=== PATIENT | male | born 1970 | race African-American/Black ===

== ENCOUNTER 2016-08-01 19:41 | Inpatient (IN) | payer OTHER ==
[2016-08-01 21:18] VITALS: BMI 29.8
--- NOTE | 2016-08-01 21:56 | HP ---
CIWA Score - CIWA Score Nausea/Vomitin-Mild Nausea/No Vomiting Muscle Tremors: 4-Moderate,w/Arms Extend Anxiety: 4-Mod. Anxious/Guarded Agitation: 2 Paroxysmal Sweats: 1-Minimal Palms Moist Orientation: 1-Uncertain about Date Tacttile Disturbances: 0-None Auditory Disturbances: 0-None Visual Disturbances: 0-None Headache: 1-Very Mild CIWA-Ar Total Score: 14 Admission ROS BHS - HPI Chief Complaint: withdrawal sx Allergies/Adverse Reactions: Allergies Allergy/AdvReac Type Severity Reaction Status Date / Time No Known Allergies Allergy Verified 08/01/16 21:21 History of Present Illness: 46 years old male with long history of alcohol nicotine dependence, chf copd and chronic bronchitis, denies mental illness, longest sobriety 10 months is admitted to detox Exam Limitations: No Limitations - Ebola screening Have you traveled outside of the country in the last 21 days: No (N) Have you had contact with anyone from an Ebola affected area: No Have you been sick,other than usual withdrawal symptoms: No Do you have a fever: No - Review of Systems Constitutional: Chills, Changes in sleep, Weight Stable EENT: reports: No Symptoms Reported Respiratory: reports: Cough, SOB with Exertion Cardiac: reports: No Symptoms Reported GI: reports: Nausea, Poor Fluid Intake, Abdominal cramping : reports: No Symptoms Reported Musculoskeletal: reports: No Symptoms Reported Integumentary: reports: No Symptoms Reported Neuro: reports: Tremors Endocrine: reports: No Symptoms Reported Hematology: reports: No Symptoms Reported Psychiatric: reports: Judgement Intact, Mood/Affect Appropiate Other Systems: Reviewed and Negative Patient History - Patient Medical History Hx Anemia: No Hx Asthma: No Hx Chronic Obstructive Pulmonary Disease (COPD): Yes Hx Cancer: No Hx Cardiac Disorders: No Hx Congestive Heart Failure: Yes Hx Hypertension: No Hx Hypercholesterolemia: No Hx Pacemaker: Yes (2011) HX Cerebrovascular Accident: Yes (left side 2012) Hx Seizures: No Hx Dementia: No Hx Diabetes: No Hx Gastrointestinal Disorders: No Hx Liver Disease: No Hx Genitourinary Disorders: No Hx Sexually Transmitted Disorders: No Hx Renal Disease (ESRD): No Hx Thyroid Disease: No Hx Human Immunodeficiency Virus (HIV): No Hx Hepatitis C: No Hx Depression: No Hx Suicide Attempt: No Hx Bipolar Disorder: No Hx Schizophrenia: No - Patient Surgical History Past Surgical History: Yes Hx Neurologic Surgery: No Hx Cataract Extraction: No Hx Cardiac Surgery: Yes ([employer]ACE [employer] 2011) Hx Lung Surgery: No Hx Breast Surgery: No Hx Breast Biopsy: No Hx Abdominal Surgery: No Hx Appendectomy: Yes (6 years old) Hx Cholecystectomy: No Hx Genitourinary Surgery: No Hx Orthopedic Surgery: No Anesthesia Reaction: No - PPD History Previous Implant?: Yes Documented Results: Negative w/o proof Implanted On Prior [facility] Admission?: No PPD to be Administered?: Yes - Smoking Cessation Smoking history: Current every day smoker Have you smoked in the past 12 months: Yes Aproximately how many cigarettes per day: 10 Cigars Per Day: 0 Hx Chewing Tobacco Use: No Initiated information on smoking cessation: Yes 'Breaking Loose' booklet given: 08/01/16 - Substance & Tx. History Hx Alcohol Use: Yes Hx Substance Use: Yes Substance Use Type: Alcohol, Cocaine Hx Substance Use Treatment: Yes - Substances Abused Alcohol Route: Oral Frequency: Daily Amount used: 3-4 PINTS volka Age of first use: 7 Date of Last Use: 08/01/16 Cocaine Route: Inhalation Frequency: 1-2 times per week Amount used: $20 Age of first use: 34 Date of Last Use: 07/30/16 Family Disease History - Family Disease History Family Disease History: Other: Father (no contact), Mother (no contact) Admission Physical Exam S - Vital Signs Vital Signs: Vital Signs - 24 hr 08/01/16 21:16 Temperature 96.3 F L Pulse Rate 84 Respiratory 20 Rate Blood Pressure 113/59 - Physical General Appearance: Yes: Appropriately Dressed, Mild Distress, Tremorous, Irritable, Sweating, Anxious HEENTM: Yes: Hearing grossly Normal, Normal ENT Inspection, Normocephalic, Normal Voice Respiratory: Yes: Chest Non-Tender, No Respiratory Distress, No Accessory Muscle Use, Hyperresonant, Inspiration Neck: Yes: Within Normal Limits Breast: Yes: Breasts Symetrical Cardiology: Yes: Regular Rhythm, Regular Rate, S1, S2, Other (pacemaker left upper chest wall) Abdominal: Yes: Non Tender, Soft Genitourinary: Yes: Within Normal Limits Back: Yes: Normal Inspection Musculoskeletal: Yes: full range of Motion, Gait Steady Extremities: Yes: Normal Inspection, Normal Range of Motion, Non-Tender, Tremors Neurological: Yes: Alert, Motor Strength 5/5, Normal Mood/Affect, Normal Response Integumentary: Yes: Warm, Moist Lymphatic: Yes: Within Normal Limits - Diagnostic (1) Alcohol dependence with uncomplicated withdrawal Current Visit: Yes Status: Acute (2) Nicotine dependence Current Visit: Yes Status: Acute Qualifiers: Nicotine product type: cigarettes Substance use status: in withdrawal Qualified Code(s): F17.213 - Nicotine dependence, cigarettes, with withdrawal (3) CHF (congestive heart failure) Current Visit: Yes Status: Acute Qualifiers: Congestive heart failure type: unspecified congestive heart failure type Congestive heart failure chronicity: unspecified congestive heart failure chronicity Qualified Code(s): I50.9 - Heart failure, unspecified Comment: laxis (4) History of atrial fibrillation Current Visit: Yes Status: Resolved Comment: digoxin serum level pending (5) COPD (chronic obstructive pulmonary disease) Current Visit: Yes Status: Acute Qualifiers: COPD type: emphysema Emphysema type: other Qualified Code(s): J43.8 - Other emphysema Comment: ventolin (6) Chronic bronchitis Current Visit: Yes Status: Acute Qualifiers: Chronic bronchitis type: simple Qualified Code(s): J41.0 - Simple chronic bronchitis Comment: symbicort (7) Pacemaker Current Visit: Yes Status: Resolved Comment: 2011 battery refilled 2015 (8) Hypertension Current Visit: Yes Status: Acute Qualifiers: Hypertension type: essential hypertension Qualified Code(s): I10 - Essential (primary) hypertension Comment: lisinopril (9) Hypercholesterolemia Current Visit: Yes Status: Acute Comment: lipitor Cleared for Admission S - Detox or Rehab [facility] Level of Care: Medically Managed Detox Regimen/Protocol: Librium [facility] Breath Alcohol Content Breath Alcohol Content: 0 Urine Drug Screen - Results Drug Screen Negative: No Urine Drug Screen Results: JIAN-Cocaine, BZO-Benzodiazepines
[2016-08-01] MEDS ORDERED: NICOTINE POLACRILEX 2 MG GUM BC PRN (22:02)
[2016-08-01] MEDS ORDERED: MAGNESIUM CITRATE 300 ML BOTTLE PO PRN (22:02)
[2016-08-01] MEDS ORDERED: MAGNESIUM HYDROX 2400MG/30ML ORAL SUSPENSION 30 ML CUP PO PRN (22:02)
[2016-08-01] MEDS ORDERED: P-EPHED 60MG/TRIPROLIDI 2.5MG TABLET PO PRN (22:02)
[2016-08-01] MEDS ORDERED: hydrOXYzine PAMOATE 50 MG CAPSULE (FP) PO PRN (22:02)
[2016-08-01] MEDS ORDERED: MAG HYDROX/AL HYDROX/SIMETH 30 ML UNIT-DOSE CUP PO PRN (22:02)
[2016-08-01] MEDS ORDERED: ACETAMINOPHEN 325 MG TABLET (FP) PO PRN (22:02)
[2016-08-01] MEDS ORDERED: MENTHOL/PHENOL 1 EACH UD MM PRN (22:02)
[2016-08-01] MEDS ORDERED: chlordiazePOXIDE HCL 25 MG CAPSULE PO PRN (22:02)
[2016-08-01] MEDS ORDERED: LOPERAMIDE HCL 2 MG CAPSULE PO PRN (22:02)
[2016-08-01] MEDS ORDERED: ALBUTEROL SO4 2.5/IPRATROPIUM 0.5 INH SOL 3 ML VIAL.NEB. NEB PRN (22:12)
[2016-08-01] MEDS: chlordiazePOXIDE HCL 25 MG CAPSULE PO SCH (22:44)
[2016-08-02] MEDS: chlordiazePOXIDE HCL 25 MG CAPSULE PO SCH ×4 (05:36→22:25)
--- NOTE | 2016-08-02 07:59 | CONSULT ---
[facility] Psychiatric Consult - Data Date of interview: 08/02/16 Admission source: [facility] Identifying data: This is 46 years old male with no psychiatric hospitalization history, multiple medical issues history, intoxicated with: Alcohol, Cocainr and Nicotine Substance Abuse History: - Smoking Cessation. Smoking history: Current every day smoker. Have you smoked in the past 12 months: Yes. Aproximately how many cigarettes per day: 10. Cigars Per Day: 0. Hx Chewing Tobacco Use: No. Initiated information on smoking cessation: Yes. 'Breaking Loose' booklet given : 08/01/16. - Substance & Tx. History. Hx Alcohol Use: Yes. Hx Substance Use : Yes. Substance Use Type: Alcohol, Cocaine. Hx Substance Use Treatment: Yes. - Substances Abused. Alcohol. Route: Oral. Frequency: Daily. Amount used: 3-4 PINTS volka. Age of first use: 7. Date of Last Use: 08/01/16. Cocaine. Route: Inhalation. Frequency: 1-2 times per week. Amount used: $20. Age of first use: 34. Date of Last Use: 07/30/16 Medical History: CHF, Chronic Bronchitis history, COPD, Hypercholesterolemia, HTN, Pacemaker installment, A.Fib history Psychiatric History: Denies past psychiatric history Physical/Sexual Abuse/Trauma History: Denies Additional Comment: Observation. Detox Unit Care Protocol Mental Status Exam - Mental Status Exam Alert and Oriented to: Person Cognitive Function: Fair Patient Appearance: Well Groomed Mood: Apprehensive Affect: Mood Congruent Patient Behavior: Cooperative Speech Pattern: Appropriate Voice Loudness: Normal Thought Process: Goal Oriented Thought Disorder: Being Controlled Hallucinations: Denies Suicidal Ideation: Denies Homicidal Ideation: Denies Insight/Judgement: Fair Sleep: Difficulty falling asleep Appetite: Fair Muscle strength/Tone: Normal Gait/Station: Normal Additional Comments: Observation. Detox Unit Care Protocol Psychiatric Findings - Problem List ([place] 1, 2,3) (1) Alcohol dependence with uncomplicated withdrawal Current Visit: Yes Status: Acute (2) Nicotine dependence Current Visit: Yes Status: Acute Qualifiers: Nicotine product type: cigarettes Substance use status: in withdrawal Qualified Code(s): F17.213 - Nicotine dependence, cigarettes, with withdrawal (3) Cocaine abuse Current Visit: Yes Status: Acute (4) Drug-induced mood disorder Current Visit: Yes Status: Suspected - Initial Treatment Plan Initial Treatment Plan: Observation. Detox Unit Care Protocol
[2016-08-02 10:05] LABS: MCH 30.2 pg (25.7-33.7); MEAN CELL VOLUME 91.5 fl (80-96); MEAN PLT VOLUME 7.8 fl (7.5-11.1); PLATELET COUNT 288 K/MM3 (134-434); RDW 16.9 % (11.9-15.9); WHITE BLOOD COUNT 10.8 K/mm3 (4.0-10.0)
[2016-08-02 10:12] LABS: URINE APPEARANCE CLEAR; URINE BILIRUBIN NEGATIVE (NEGATIVE); URINE BLOOD NEGATIVE (NEGATIVE); URINE COLOR LTYELLOW; URINE GLUCOSE (UA) NEGATIVE (NEGATIVE); URINE KETONE NEGATIVE (NEGATIVE); URINE LEUK ESTERASE NEGATIVE (NEGATIVE); URINE NITRITE NEGATIVE (NEGATIVE); URINE PROTEIN NEGATIVE (NEGATIVE); URINE UROBILINOGEN 2.0 E.U/dl E.U./dl (0.2-1.0)
--- NOTE | 2016-08-02 10:20 | PN ---
S CIWA - CIWA Score Nausea/Vomitin-No Nausea/No Vomiting Muscle Tremors: 3 Anxiety: 3 Agitation: 3 Paroxysmal Sweats: 3 Orientation: 0-Oriented Tacttile Disturbances: 0-None Auditory Disturbances: 0-None Visual Disturbances: 0-None Headache: 0-None Present CIWA-Ar Total Score: 12 BHS Progress Note (SOAP) Subjective: sweats mild shakes mild headache interrupted sleep Objective: 08/02/16 10:18 Vital Signs Temperature 96.4 F L 08/02/16 09:31 Pulse Rate 84 08/02/16 09:31 Respiratory Rate 16 08/02/16 09:31 Blood Pressure 139/65 08/02/16 09:31 O2 Sat by Pulse Oximetry (%) Laboratory Tests 08/02/16 06:45 WBC 10.8 H RBC 4.47 Hgb 13.5 Hct 40.9 MCV 91.5 MCHC 33.0 RDW 16.9 H Plt Count 288 MPV 7.8 labs pending awake/alert ambulating no acute distress Assessment: 08/02/16 10:19 withdrawal sx Plan: continue detox increase fluids
--- NOTE | 2016-08-02 10:22 | PN ---
S Progress Note Note: repeated EKG done this am; same result appear as the earlier EKG done, contacted cardiology/ekg department at [facility] for a consultation of recent ekg by tennis director ext [phone], awaiting confirmation of reading. will f/u. pt appears asymptomatic denies any chest pain no sob, no diaphoresis
[2016-08-02] MEDS: ASPIRIN 81 MG CHEWABLE TABLETS PO SCH (10:36)
[2016-08-02] MEDS: SPIRONOLACTONE 25 MG TABLET (FP) PO SCH (10:36)
[2016-08-02] MEDS: LISINOPRIL 20 MG TABLET (FP) PO SCH (10:36)
[2016-08-02] MEDS: PRENATAL VITAMINS W/ FOLIC ACID TABLET (FP) PO SCH (10:36)
[2016-08-02] MEDS: FUROSEMIDE 40 MG TABLET (FP) PO SCH (10:36)
[2016-08-02] MEDS: DIGOXIN 0.125 MG TABLET (FP) PO SCH (10:36)
[2016-08-02] MEDS: NICOTINE 14 MG/24 HOURS TOPICAL PATCH TD SCH (10:39)
[2016-08-02 10:45] LABS: ALK PHOS 112 U/L (45-117); ANION GAP 12 (8-16); BILIRUBIN,TOTAL 0.7 mg/dL (0.2-1.0); CALCIUM 8.6 mg/dL (8.5-10.1); CO2 24 mmol/L (21-32); CREATININE 1.2 mg/dL (0.7-1.3); DIGOXIN LEVEL 0.5917 ng/ml (0.8-2.0); GLUCOSE,RANDOM 88 mg/dL (74-106); SGOT/AST 14 U/L (15-37); SGPT/ALT 18 U/L (12-78); TOT PROT 6.6 g/dl (6.4-8.2)
[2016-08-02 10:55] LABS: INR 1.85 (0.82-1.09); PROTHROMBIN TIME (PATIENT) 20.6 SEC (9.98-11.88)
[2016-08-02 11:20] LABS: HIV 1 & 2 AB NEGATIVE; HIV 1 AGp24 NEGATIVE
--- NOTE | 2016-08-02 11:40 | EKG ---
Test Reason : Blood Pressure : / mmHG Vent. Rate : 082 BPM Atrial Rate : 082 BPM P-R Int : 150 ms QRS Dur : 146 ms QT Int : 494 ms P-R-T Axes : 071 119 -01 degrees QTc Int : 577 ms Atrial-sensed ventricular-paced rhythm WITH FREQUENT PREMATURE VENTRICULAR COMPLEXES ABNORMAL ECG WHEN COMPARED WITH ECG OF 02-AUG-2016 07:23, NO SIGNIFICANT CHANGE WAS FOUND Confirmed by ENMA BANG, DEVON ([id number]) on 08/02/2016 11:40:19 AM Referred By: Confirmed By:DEVON NORWOOD MD
--- NOTE | 2016-08-02 11:40 | EKG ---
Test Reason : Blood Pressure : / mmHG Vent. Rate : 082 BPM Atrial Rate : 082 BPM P-R Int : 152 ms QRS Dur : 144 ms QT Int : 502 ms P-R-T Axes : 070 150 023 degrees QTc Int : 586 ms Atrial-sensed ventricular-paced rhythm WITH OCCASIONAL PREMATURE VENTRICULAR COMPLEXES ABNORMAL ECG WHEN COMPARED WITH ECG OF 01-AUG-2016 22:48, VENT. RATE HAS DECREASED BY 4 BPM Confirmed by ENMA BANG, DEVON ([id number]) on 08/02/2016 11:40:47 AM Referred By: Confirmed By:DEVON NORWOOD MD
--- NOTE | 2016-08-02 11:41 | EKG ---
Test Reason : Blood Pressure : / mmHG Vent. Rate : 086 BPM Atrial Rate : 086 BPM P-R Int : 148 ms QRS Dur : 138 ms QT Int : 474 ms P-R-T Axes : 071 137 -16 degrees QTc Int : 567 ms Atrial-sensed ventricular-paced rhythm WITH OCCASIONAL PREMATURE VENTRICULAR COMPLEXES ABNORMAL ECG NO PREVIOUS ECGS AVAILABLE Confirmed by DEVON NORWOOD MD ([id number]) on 08/02/2016 11:41:16 AM Referred By: Confirmed By:DEVON NORWOOD MD
[2016-08-02] MEDS: BUDESONIDE/FORMETEROL FUMARATE 80/4.5 mcg INHALER IH SCH ×2 (12:05→22:24)
[2016-08-02] MEDS: RIVAROXABAN 20 MG TABLET PO SCH (12:05)
[2016-08-02] MEDS: THIAMINE HCL 100 MG TABLET (FP) PO SCH (22:24)
[2016-08-02] MEDS: ATORVASTATIN CA 40 MG TABLET (FP) PO SCH (22:25)
[2016-08-03] MEDS: chlordiazePOXIDE HCL 25 MG CAPSULE PO SCH ×3 (05:16→17:10)
[2016-08-03] MEDS: PRENATAL VITAMINS W/ FOLIC ACID TABLET (FP) PO SCH (10:22)
[2016-08-03] MEDS: FUROSEMIDE 40 MG TABLET (FP) PO SCH (10:22)
[2016-08-03] MEDS: BUDESONIDE/FORMETEROL FUMARATE 80/4.5 mcg INHALER IH SCH ×2 (10:22→22:12)
[2016-08-03] MEDS: ASPIRIN 81 MG CHEWABLE TABLETS PO SCH (10:22)
[2016-08-03] MEDS: RIVAROXABAN 20 MG TABLET PO SCH (10:22)
[2016-08-03] MEDS: LISINOPRIL 20 MG TABLET (FP) PO SCH (10:22)
[2016-08-03] MEDS: SPIRONOLACTONE 25 MG TABLET (FP) PO SCH (10:22)
--- NOTE | 2016-08-03 10:41 | PN ---
S CIWA - CIWA Score Nausea/Vomitin Muscle Tremors: 3 Anxiety: 3 Agitation: 2 Paroxysmal Sweats: No Perspiration Orientation: 0-Oriented Tacttile Disturbances: 1-Very Mild Itch/Numbness Auditory Disturbances: 1-Very Mild Visual Disturbances: 1-Very Mild Sensitivity Headache: 2-Mild CIWA-Ar Total Score: 16 BHS Progress Note (SOAP) Subjective: ALERT,IRRITABLE,ANXIOUS,INTERRUPTED SLEEP,TREMOR,NO CHEST PAIN,NO SOB Objective: 08/03/16 10:39 Vital Signs Temperature 95.5 F L 08/03/16 06:00 Pulse Rate 83 08/03/16 06:00 Respiratory Rate 18 08/03/16 06:00 Blood Pressure 110/71 08/03/16 06:00 O2 Sat by Pulse Oximetry (%) 08/03/16 10:39 Laboratory Last Values WBC 10.8 K/mm3 (4.0-10.0) H 08/02/16 06:45 RBC 4.47 M/mm3 (4.00-5.60) 08/02/16 06:45 Hgb 13.5 GM/dL (11.7-16.9) 08/02/16 06:45 Hct 40.9 % (35.4-49) 08/02/16 06:45 MCV 91.5 fl (80-96) 08/02/16 06:45 MCHC 33.0 g/dl (32.0-35.9) 08/02/16 06:45 RDW 16.9 % (11.9-15.9) H 08/02/16 06:45 Plt Count 288 K/MM3 (134-434) 08/02/16 06:45 MPV 7.8 fl (7.5-11.1) 08/02/16 06:45 INR 1.85 (0.82-1.09) H 08/02/16 06:45 Sodium 141 mmol/L (136-145) 08/02/16 06:45 Potassium 4.0 mmol/L (3.5-5.1) 08/02/16 06:45 Chloride 105 mmol/L (98-107) 08/02/16 06:45 Carbon Dioxide 24 mmol/L (21-32) 08/02/16 06:45 Anion Gap 12 (8-16) 08/02/16 06:45 BUN 19 mg/dL (7-18) H 08/02/16 06:45 Creatinine 1.2 mg/dL (0.7-1.3) 08/02/16 06:45 Creat Clearance w eGFR > 60 (>60) 08/02/16 06:45 Random Glucose 88 mg/dL (74-106) 08/02/16 06:45 Calcium 8.6 mg/dL (8.5-10.1) 08/02/16 06:45 Total Bilirubin 0.7 mg/dL (0.2-1.0) 08/02/16 06:45 AST 14 U/L (15-37) L 08/02/16 06:45 ALT 18 U/L (12-78) 08/02/16 06:45 Alkaline Phosphatase 112 U/L (45-117) 08/02/16 06:45 Total Protein 6.6 g/dl (6.4-8.2) 08/02/16 06:45 Albumin 3.0 g/dl (3.4-5.0) L 08/02/16 06:45 Urine Color Ltyellow 08/02/16 07:30 Urine Appearance Clear 08/02/16 07:30 Urine pH 6.0 (5.0-8.0) 08/02/16 07:30 Ur Specific [place] 1.010 (1.001-1.035) 08/02/16 07:30 Urine Protein Negative (NEGATIVE) 08/02/16 07:30 Urine Glucose (UA) Negative (NEGATIVE) 08/02/16 07:30 Urine Ketones Negative (NEGATIVE) 08/02/16 07:30 Urine Blood Negative (NEGATIVE) 08/02/16 07:30 Urine Nitrite Negative (NEGATIVE) 08/02/16 07:30 Urine Bilirubin Negative (NEGATIVE) 08/02/16 07:30 Urine Urobilinogen 2.0 e.u/dl E.U./dl (0.2-1.0) 08/02/16 07:30 Ur Leukocyte Esterase Negative (NEGATIVE) 08/02/16 07:30 Digoxin 0.5917 ng/ml (0.8-2.0) L 08/02/16 06:45 RPR Titer Nonreactive (NONREACTIVE) 08/02/16 06:45 HIV 1&2 Antibody Screen Negative 08/02/16 06:45 HIV P24 Antigen Negative 08/02/16 06:45 Assessment: 08/03/16 10:40 WITHDRAWAL SYMPTOM Plan: CONTINUE DETOX
[2016-08-03] MEDS: NICOTINE 14 MG/24 HOURS TOPICAL PATCH TD SCH (11:00)
[2016-08-03] MEDS: DIGOXIN 0.125 MG TABLET (FP) PO SCH (12:09)
[2016-08-03] MEDS: ATORVASTATIN CA 40 MG TABLET (FP) PO SCH (22:12)
[2016-08-03] MEDS: THIAMINE HCL 100 MG TABLET (FP) PO SCH (22:12)
[2016-08-03] MEDS: diphenhydrAMINE HCL 50 MG CAPSULE PO PRN (22:12)
[2016-08-03] MEDS: chlordiazePOXIDE 5 MG CAPSULE PO SCH (22:13)
[2016-08-03] MEDS: guaiFENesin/D-METHORPHAN HB 10 ML UNIT-DOSE CUPS PO PRN (22:14)
[2016-08-04] MEDS: chlordiazePOXIDE 5 MG CAPSULE PO SCH ×3 (05:32→17:55)
[2016-08-04] MEDS: guaiFENesin/D-METHORPHAN HB 10 ML UNIT-DOSE CUPS PO PRN (05:33)
[2016-08-04] MEDS: ALBUTEROL SO4 6.7 GM HFA INHALER IH PRN ×3 (05:34→22:17)
[2016-08-04] MEDS: PRENATAL VITAMINS W/ FOLIC ACID TABLET (FP) PO SCH (10:31)
[2016-08-04] MEDS: LISINOPRIL 20 MG TABLET (FP) PO SCH (10:31)
[2016-08-04] MEDS: NICOTINE 14 MG/24 HOURS TOPICAL PATCH TD SCH (10:32)
[2016-08-04] MEDS: ASPIRIN 81 MG CHEWABLE TABLETS PO SCH (10:32)
[2016-08-04] MEDS: SPIRONOLACTONE 25 MG TABLET (FP) PO SCH (10:32)
[2016-08-04] MEDS: RIVAROXABAN 20 MG TABLET PO SCH (10:32)
[2016-08-04] MEDS: FUROSEMIDE 40 MG TABLET (FP) PO SCH (10:32)
[2016-08-04] MEDS: DIGOXIN 0.125 MG TABLET (FP) PO SCH (10:32)
[2016-08-04] MEDS: BUDESONIDE/FORMETEROL FUMARATE 80/4.5 mcg INHALER IH SCH ×2 (10:33→22:17)
[2016-08-04 10:50] LABS: MCH 30.1 pg (25.7-33.7); MCHC 32.5 g/dl (32.0-35.9); MEAN CELL VOLUME 92.7 fl (80-96); MEAN PLT VOLUME 7.9 fl (7.5-11.1); PLATELET COUNT 307 K/MM3 (134-434); RDW 17.4 % (11.9-15.9); WHITE BLOOD COUNT 10.5 K/mm3 (4.0-10.0)
[2016-08-04 10:54] LABS: INR 1.35 (0.82-1.09); PROTHROMBIN TIME (PATIENT) 14.9 SEC (9.98-11.88)
--- NOTE | 2016-08-04 11:35 | PN ---
S Progress Note (SOAP) Subjective: ALERT,IRRITABLE,ANXIOUS,INTERRUPTED SLEEP Objective: 08/04/16 11:33 Vital Signs Temperature 98.5 F 08/04/16 09:59 Pulse Rate 86 08/04/16 10:32 Respiratory Rate 16 08/04/16 09:59 Blood Pressure 110/75 08/04/16 09:59 O2 Sat by Pulse Oximetry (%) Abnormal Lab Results 08/04/16 08/04/16 08:00 08:00 WBC 10.5 H RDW 17.4 H INR 1.35 H 08/04/16 11:34 Assessment: 08/04/16 11:34 WITHDRAWAL SYMPTOM Plan: CONTINUE DETOX
[2016-08-04] MEDS: THIAMINE HCL 100 MG TABLET (FP) PO SCH (22:17)
[2016-08-04] MEDS: ATORVASTATIN CA 40 MG TABLET (FP) PO SCH (22:17)
[2016-08-04] MEDS: chlordiazePOXIDE HCL 10 MG CAPSULE PO SCH (22:17)
[2016-08-04] MEDS: diphenhydrAMINE HCL 50 MG CAPSULE PO PRN (22:18)
[2016-08-05] MEDS: ALBUTEROL SO4 6.7 GM HFA INHALER IH PRN (05:43)
[2016-08-05] MEDS: chlordiazePOXIDE HCL 10 MG CAPSULE PO SCH ×2 (05:43→10:55)
[2016-08-05] MEDS: guaiFENesin/D-METHORPHAN HB 10 ML UNIT-DOSE CUPS PO PRN (05:44)
--- NOTE | 2016-08-05 10:20 | PN ---
S Progress Note (SOAP) Subjective: ALERT,NO COMPLAINT Objective: 08/05/16 10:18 Vital Signs Temperature 97.1 F L 08/05/16 07:29 Pulse Rate 74 08/05/16 07:29 Respiratory Rate 18 08/05/16 07:29 Blood Pressure 110/69 08/05/16 07:29 O2 Sat by Pulse Oximetry (%) Assessment: 08/05/16 10:18 DETOX COMPLETED,NO WITHDRAWAL SYMPTOM Plan: DISCHARGE TODAY,FOLLOW P WITH [facility]
--- NOTE | 2016-08-05 10:24 | DS ---
[facility] Detox Discharge Summary Admission Date: 08/01/16 Discharge Date: 08/05/16 - History Present History: Alcohol Dependence, Cocaine Dependence Additional Comments: FOLLOW UP WITH [facility] AND PMD FOR MEDICAL PROBLEM Pertinent Past History: NICOTINE DEPENDENCE COPD HYPERTENSION HYPERCHOLESTEROLEMIA HISTORY OF ATRIAL FIBRILLATION - Physical Exam Results Vital Signs: Vital Signs Temperature 97.1 F L 08/05/16 07:29 Pulse Rate 74 08/05/16 07:29 Respiratory Rate 18 08/05/16 07:29 Blood Pressure 110/69 08/05/16 07:29 O2 Sat by Pulse Oximetry (%) Pertinent Admission Physical Exam Findings: WITHDRAWAL SYMPTOM - Treatment Hospital Course: Detox Protocol Followed, Detoxed Safely, Responded well, Discharged Condition Good, Rehab Referral Accepted Patient has Accepted a Rehab Referral to: [facility] - Medication Discharge Medications: Ambulatory Orders Aspirin [ASA -] 81 mg PO DAILY 08/01/16 Atorvastatin Ca [Lipitor] 40 mg PO HS 08/01/16 Digoxin [Lanoxin -] 0.125 mg PO DAILY 08/01/16 Furosemide [Lasix] 80 mg PO DAILY 08/01/16 Lisinopril [Prinivil -] 40 mg PO DAILY 08/01/16 Rivaroxaban [Xarelto -] 20 mg PO DAILY 08/01/16 Spironolactone [Aldactone] 25 mg PO DAILY 08/01/16 - AMA Did Patient Leave Against Medical Advice: No
[2016-08-05 10:39] VITALS: BP 128/63; PULSE 82; TEMP 96.1
[2016-08-05] MEDS: SPIRONOLACTONE 25 MG TABLET (FP) PO SCH (10:55)
[2016-08-05] MEDS: DIGOXIN 0.125 MG TABLET (FP) PO SCH (10:55)
[2016-08-05] MEDS: PRENATAL VITAMINS W/ FOLIC ACID TABLET (FP) PO SCH (10:55)
[2016-08-05] MEDS: ASPIRIN 81 MG CHEWABLE TABLETS PO SCH (10:55)
[2016-08-05] MEDS: LISINOPRIL 20 MG TABLET (FP) PO SCH (10:56)
[2016-08-05] MEDS: RIVAROXABAN 20 MG TABLET PO SCH (10:56)
[2016-08-05] MEDS: NICOTINE 14 MG/24 HOURS TOPICAL PATCH TD SCH (10:56)
[2016-08-05] MEDS: FUROSEMIDE 40 MG TABLET (FP) PO SCH (10:56)
[2016-08-05] MEDS: BUDESONIDE/FORMETEROL FUMARATE 80/4.5 mcg INHALER IH SCH (10:57)
== END 2016-08-05 13:21 | disposition home or self-care (01) | DRG 774 ==
LOC: YASAS 19:41 → Y6N 21:52
PROVIDERS: ADMIT Internal Medicine Addiction Medicine; ATTEND Internal Medicine Addiction Medicine
PROC: HZ2ZZZZ Detoxification Services for Substance Abuse Treatment (ICD-10-PCS; principal; 2016-08-05)
DX: F10.230 Alcohol dependence with withdrawal, uncomplicated (principal); F14.10 Cocaine abuse, uncomplicated; F19.24 Other psychoactive substance dependence with psychoactive substance-induced mood disorder; I48.91 Unspecified atrial fibrillation; I50.9 Heart failure, unspecified; I10 Essential (primary) hypertension; Z95.0 Presence of cardiac pacemaker; J43.8 Other emphysema; E78.00 Pure hypercholesterolemia, unspecified
CPT/HCPCS: 36415; 80053; 80162; 81003; 85027; 85610; 86593; 87389; 93005; 93010